=== PATIENT | female | born 1945 | race Caucasian/White ===

== ENCOUNTER 2019-06-11 14:07 | Emergency (ER) | payer OTHER ==
[2019-06-11 14:42] VITALS: BMI 23.2
[2019-06-11] MEDS ORDERED: DOPAMINE 400 MG/D5W - 400,000 MCG/250 ML INFUS.BAG IVPB SCH (14:45)
[2019-06-11 15:04] LABS: BASO % 0.3 % (0-2.0); EOS % 0.9 % (0-4.5); HEMATOCRIT 34.9 % (32.4-45.2); HEMOGLOBIN 11.4 GM/dl (10.7-15.3); LYMPH % 10.6 % (8-40); MCH 30.7 pg (25.7-33.7); MCHC 32.5 g/dl (32.0-36.0); MEAN CELL VOLUME 94.3 fl (80-96); MEAN PLT VOLUME 9.5 fl (7.5-11.1); MONO % 2.5 % (3.8-10.2); NEUT % 85.7 % (42.8-82.8); PLATELET COUNT 279 K/MM3 (134-434); RDW 13.4 % (11.6-15.6); WHITE BLOOD COUNT 9.8 K/mm3 (4.0-10.8)
--- NOTE | 2019-06-11 15:04 | PDOC ---
History of Present Illness - General Chief Complaint: Lightheaded Stated Complaint: DIZZINESS Time Seen by Provider: 06/11/19 14:20 - History of Present Illness Initial Comments: 06/11/19 15:58 73f with pmh of htn and hypothoidism presents to the ED with daughter complaining of weakness and dizziness over the past 2-4 weeks, worse today. As per daughter patient has been progressively weak, very poor appetite and not mopving around the house as much. Only drank coffee today. Denies any chest pain, sob, fever, chills or abdominal pain. No recent travel. Started Amlodipine 1 week ago. Triage vitals: Heart rate of 22, BP 116/69 Past History - Past Medical History Allergies/Adverse Reactions: Allergies Allergy/AdvReac Type Severity Reaction Status Date / Time No Known Allergies Allergy Verified 06/11/19 14:08 Home Medications: Ambulatory Orders Amlodipine Besylate 5 mg PO DAILY 06/11/19 Glipizide 5 mg PO DAILY 06/11/19 Levothyroxine [Synthroid -] 100 mcg PO DAILY 06/11/19 Metformin HCl [Glucophage] 1,000 mg PO BID 06/11/19 Oxybutynin Chloride [Ditropan Xl] 10 mg PO DAILY 06/11/19 Triamterene/Hydrochlorothiazid [Triamterene-Hctz 37.5-25 mg Cp] 1 each PO DAILY 06/11/19 Valsartan 320 mg PO DAILY 06/11/19 COPD: No Diabetes: Yes Disorders: Yes (urinary incontinence) HTN: Yes - Psycho Social/Smoking Cessation Hx Smoking History: Never smoked Have you smoked in the past 12 months: No Information on smoking cessation initiated: No Hx Alcohol Use: No Review of Systems - Review of Systems Able to Perform ROS?: Yes Is the patient limited Macanese proficient: No Constitutional: Yes: See HPI, Weakness HEENTM: No: Symptoms Reported Respiratory: No: Symptoms reported Cardiac (ROS): No: Symptoms Reported ABD/GI: No: Symptoms Reported : No: Symptoms Reported Musculoskeletal: No: Symptoms Reported Integumentary: No: Symptoms Reported Neurological: Yes: See HPI All Other Systems: Reviewed and Negative *Physical Exam - Vital Signs Last Vital Signs Temp Pulse Resp BP Pulse Ox 97.4 F L 54 L 18 138/77 99 06/11/19 16:00 06/11/19 16:00 06/11/19 16:00 06/11/19 16:00 06/11/19 16:00 - Physical Exam General Appearance: Yes: Mild Distress, Thin HEENT: positive: EOMI, MARCELLO, Normal ENT Inspection Respiratory/Chest: positive: Lungs Clear, Normal Breath Sounds. negative: Chest Tender, Respiratory Distress Cardiovascular: positive: S1, S2, Bradycardia Gastrointestinal/Abdominal: positive: Normal Bowel Sounds, Flat, Soft. negative : Tender Extremity: positive: Normal Capillary Refill, Normal Inspection, Normal Range of Motion Integumentary: positive: Dry, Warm, Pale Neurologic: positive: Fully Oriented, Alert ED Treatment Course - LABORATORY CBC & Chemistry Diagram: 06/11/19 14:51 06/11/19 16:26 - ADDITIONAL ORDERS Additional order review: 06/11/19 14:51 RBC 3.70 MCV 94.3 MCHC 32.5 RDW 13.4 MPV 9.5 Neutrophils % 85.7 H Lymphocytes % 10.6 Monocytes % 2.5 L Eosinophils % 0.9 Basophils % 0.3 - Medications Given in the ED: ED Medications Discontinued Medications Generic Name Dose Route Start Last Admin Trade Name Freq PRN Reason Stop Dose Admin Albuterol Sulfate 2 amp 06/11/19 15:36 06/11/19 15:39 Ventolin 0.083% Nebulizer Soln - NEB 06/11/19 15:37 2 amp ONCE ONE Administration Calcium Gluconate 2,000 mg 06/11/19 15:35 06/11/19 15:30 Calcium Gluconate 10% - IVPUSH 06/11/19 15:36 2,000 mg ONCE ONE Administration Dextrose 25 gm 06/11/19 15:36 06/11/19 15:40 D50w (Vial) - IVPUSH 06/11/19 15:37 25 gm NOW ONE Administration Dopamine HCl/Dextrose 400,000 mcg in 250 mls @ 10.461 mls/hr 06/11/19 14:45 06/11/19 14:51 Dopamine 400 Mg/D5w - IVPB 5 mcg/kg/min TITR GM 10.461 mls/hr Administration Protocol 5 MCG/KG/MIN Insulin Human Regular 5 units 06/11/19 15:34 06/11/19 15:47 Novolin R Vial *For Ivpush Or Iv Drip Only* IVPUSH 06/11/19 15:35 5 units ONCE ONE Administration Medical Decision Making - Medical Decision Making 06/12/19 13:42 73F with pmh of HTN, dm2, hypothyroidism coming in with symptomatic bradycardia , hemodynamically stable, dizziness and failure to thrive for the past week. DDX: [place], medication overdose, infection? EKG: junctional rhythm with bigeminy rate 40, no P waves seen. Monitor and pads placed on patient. Deferring using atropine as patient is hemodynamically stable. Patient started on Dopamine, which made her revert to sinus rhythm, HR is now in the 60's, maintaining good blood pressure (increase to systolic 170) however patient is now vomiting coffee colored liquid (actual coffee vs Upper gi bleed?) Will defer giving Zofran att this time as to avoid prolonging QT. Sinus rhythm confirmed with EKG Spoke to [employer] Contact Printer solutions specialist Dr. Lopez who agrees with the plan, advised to transfer patient to CCU capable facility. Starting transfer to [facility]. Accepted by CCU fellow Dr. Monzon. Patient hyponatremic at 116, hyperkalemic at 6.6. Starting anti-hyperk medication with CaGluconate, albuterol, insulin and D50. Will not correct hypernatremia at this time as patient is awake and alert, unknown chronicity. Negative trops. Spoke to Dr. Thurman at [facility] ED who will receive the patient in the ED. Discharge - Discharge Information Problems reviewed: Yes Clinical Impression/Diagnosis: Symptomatic bradycardia, Hyponatremia, Hyperkalemia, Acute kidney failure Condition: Stable Disposition: TRANSFER ACUTE CARE/OTHER HOSP - Follow up/Referral Referrals: Pardeep Quinonez MD [Primary Care Provider] - - Patient Discharge Instructions - Post Discharge Activity - Transfer to Acute Care Facility Receiving Facility Name: [facility] Accepting Physician:: Dr. Monzon
[2019-06-11 15:15] LABS: INR 1.02 (0.82-1.09); PROTHROMBIN TIME (PATIENT) 11.4 SEC (10.2-13.0)
[2019-06-11 15:26] LABS: ALBUMIN 3.3 g/dl (3.4-5.0); BILIRUBIN,TOTAL 0.5 mg/dl (0.2-1); CALCIUM 8.9 mg/dl (8.5-10); CREATININE 1.5 mg/dl (0.55-1.3); MAGNESIUM 1.7 mg/dL (1.8-2.4); TOT PROT 6.4 g/dl (6.4-8.2)
--- NOTE | 2019-06-11 15:32 | PDOC ---
Attending Attestation - Resident Resident Name: SkinnyCarlos - ED Attending Attestation I have performed the following: I have examined & evaluated the patient, The case was reviewed & discussed with the resident, I agree w/resident's findings & plan, Exceptions are as noted - HPI HPI: 06/11/19 15:18 73-year-old female with a history of hypertension, diabetes, hypothyroidism presents the emergency department with 1 month of lightheadedness that has been progressive over the last 3 days. Patient's daughter states that for the last 2 days she has barely gotten out of bed, and has not been eating. Patient also reports nausea. She denies any chest or abdominal pain. Of note, patient noted to be bradycardic to 22 in triage with a blood pressure of 116/69. Patient denies headache, fevers, chills, focal weakness or numbness, shortness of breath, lower extremity edema.Denies recent travel or immobility. Daughter reports that one month ago the patient was started on valsartan for blood pressure control and 1 week ago amlodipine was added by her primary care doctor. 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 - Physicial Exam PE: 06/11/19 15:20 GENERAL: Awake, alert, and fully oriented, in no acute distress. Pale EYES: EOMI, sclera anicteric, conjunctiva clear ENT: Oropharynx clear without exudates. Moist mucosa NECK: Normal ROM, supple, no lymphadenopathy, JVD, or masses LUNGS: Breath sounds equal, clear to auscultation bilaterally. No wheezes, and no crackles HEART: Bradycardia ranging from 20-60, irregular at times, normal S1 and S2, no murmurs, rubs or gallops ABDOMEN: Soft, nontender, normoactive bowel sounds. No guarding, no rebound. No masses EXTREMITIES: Normal range of motion, no edema. No clubbing or cyanosis. No cords, erythema, or tenderness. WWP. NEUROLOGICAL: Normal speech, cranial nerves intact, 5/5 strength in all 4 extremities, normal sensation to light touch in all 4 extremities, gait deferred SKIN: Warm, Dry, normal turgor, no rashes or lesions noted. - Critical Care Time Total Critical Care Time: 60 Critical Care Statement: The care of this patient involved high complexity decision making to prevent further life threatening deterioration of the patient 's condition and/or to evaluate & treat vital organ system(s) failure or risk of failure. - Medical Decision Making 06/11/19 15:22 73-year-old female with a history of hypertension, diabetes, hypothyroidism presents the emergency department with progressive lightheadedness for 1 month, found to have symptomatic but stable bradycardia. Not beta blocked, is newly on valsartan for 1 month and amlodipine for 1 week. Also on a diuretic. Unlikely that these medications are contributing to her bradycardia. Initial EKG appears to be a junctional rhythm with bigeminy, rate 40. No ST elevations. Rhythm strip shortly thereafter with only junctional rhythm without bigeminy. Patient was initiated on dopamine at 5mcg/kg/min with good response in heart rate to the 50s and 60s and blood pressure in the 140s and 150s systolic in both arms. Patient feeling less dizzy on dopamine. Repeat EKG after dopamine now in sinus rhythm with a rate of 60, no ST elevations. Case discussed with Dr. Lopez from cardiology, agrees with dopamine support. Plan will be to send patient to a CCU at this time as she likely needs a pacemaker, and possibly a cath depending on her cardiac enzymes. Patient has 2 IVs, pacer pads are in place. Labs are pending at this time, anticipate transfer to [facility]. Pt has been autoaccepted by CCU fellow Dr. Monzon, awaiting call back to discuss case. Pt and daughter consent for transfer. 06/11/19 15:30 Labs remarkable for hyperkalemia to 6.6. Pt given stat dose of calcium gluconate 2G, albuterol, insulin 5 units, amp of D50 Pt also severely hyponatremic to 116, unknown if acute or chronic. Fluids stopped. Environmental Services Assistant 1.5 Trop negative. Possible adrenal crisis? Crit care transport team has arrived, we have still not spoken with physician at CCU, will call transfer center again. 06/11/19 16:15 Case discussed with ED attending Dr. Thurman by Dr. Babb Pt transported to [facility] ED with crit care team
[2019-06-11 15:33] LABS: POTASSIUM 6.6 mmol/L (3.5-5.1)
[2019-06-11] MEDS ORDERED: CALCIUM CHLORIDE 10% 1 GM/10 ML *VIAL IVPUSH ONE (15:33)
[2019-06-11] MEDS ORDERED: CALCIUM GLUCONATE 10% - 1,000 MG/10 ML VIAL ONE (15:34)
[2019-06-11] MEDS ORDERED: INSULIN REGULAR HUMAN 100 UNITS/ML *VIAL IVPUSH ONE (15:34)
[2019-06-11] MEDS ORDERED: CALCIUM GLUCONATE 10% - 1,000 MG/10 ML VIAL IVPUSH ONE (15:35)
[2019-06-11] MEDS ORDERED: ALBUTEROL SO4 0.083% IH SOL 2.5 MG/3 ML VIAL.NEB. NEB ONE ×2 (15:35→15:36)
[2019-06-11] MEDS ORDERED: DEXTROSE 50%-WATER - 25 GM/50 ML VIAL IVPUSH ONE (15:36)
[2019-06-11 15:57] LABS: VENOUS PH 7.33 (7.31-7.41)
[2019-06-11 15:58] LABS: VENOUS PO2 < 49 mmHg (28-48)
[2019-06-11 16:21] VITALS: BP 138/77; PULSE 54; TEMP 97.4
[2019-06-11 16:54] LABS: ALBUMIN 3.1 g/dl (3.4-5.0); BILIRUBIN,TOTAL 0.6 mg/dl (0.2-1); CALCIUM 9.3 mg/dl (8.5-10); CREATININE 1.4 mg/dl (0.55-1.3); POTASSIUM 4.6 mmol/L (3.5-5.1); TOT PROT 6.1 g/dl (6.4-8.2)
--- NOTE | 2019-06-12 10:18 | EKG ---
Test Reason : Blood Pressure : / mmHG Vent. Rate : 040 BPM Atrial Rate : 040 BPM P-R Int : 000 ms QRS Dur : 068 ms QT Int : 586 ms P-R-T Axes : 000 028 077 degrees QTc Int : 477 ms UNDETERMINED RHYTHM ? JUNCTIONAL RHYTHM NONSPECIFIC ST AND T WAVE ABNORMALITY ABNORMAL ECG NO PREVIOUS ECGS AVAILABLE Confirmed by NEAL MASON, DEMETRIUS ([id number]) on 06/12/2019 10:17:49 AM Referred By: MARK Confirmed By:DEMETRIUS DE JESUS MD
== END 2019-06-11 16:00 | disposition short-term general hospital (02) ==
LOC: FER 14:07
PROC: 3E0F7GC Introduction of Other Therapeutic Substance into Respiratory Tract, Via Natural or Artificial Opening (ICD-10-PCS; principal; 2019-06-11)
PROC: 3E033VG Introduction of Insulin into Peripheral Vein, Percutaneous Approach (ICD-10-PCS; 2019-06-11)
PROC: 3E033GC Introduction of Other Therapeutic Substance into Peripheral Vein, Percutaneous Approach (ICD-10-PCS; 2019-06-11)
DX: R00.1 Bradycardia, unspecified (principal); E87.1 Hypo-osmolality and hyponatremia; E87.5 Hyperkalemia; N17.9 Acute kidney failure, unspecified; I10 Essential (primary) hypertension; E11.9 Type 2 diabetes mellitus without complications; E03.9 Hypothyroidism, unspecified
CPT/HCPCS: 36415; 71045-TC-FY; 80053; 82550; 82803; 83735; 84443; 84484; 85025; 85610; 85730; 93005; 99285-25

== ENCOUNTER 2021-01-28 01:16 | Emergency (ER) | payer OTHER ==
[2021-01-28 01:33] VITALS: BP 171/90; PULSE 76; TEMP 97.7; BMI 27.6
[2021-01-28] MEDS ORDERED: MAGNESIUM CITRATE 300 ML BOTTLE PO ONE (01:37)
[2021-01-28] MEDS ORDERED: MAGNESIUM CITRATE 300 ML BOTTLE ONE (01:41)
[2021-01-28 02:52] LABS: EPI CELLS 9 /uL (0-25.1); HYALINE CASTS 0 /uL (0-3.1); URINE APPEARANCE CLEAR; URINE BACTERIA >9,000 /uL (0-1359); URINE BILIRUBIN NEGATIVE (NEGATIVE); URINE COLOR YELLOW; URINE GLUCOSE (UA) NEGATIVE (NEGATIVE); URINE KETONE NEGATIVE (NEGATIVE); URINE LEUK ESTERASE 1+ (NEGATIVE); URINE NITRITE NEGATIVE (NEGATIVE); URINE PROTEIN NEGATIVE (NEGATIVE); URINE RBC 1 /uL (0-23.9); URINE UROBILINOGEN 0.2 mg/dL (0.2-1.0); URINE WBC 26 /uL (0-25.8)
[2021-01-28] MEDS ORDERED: CEPHALEXIN MONOHYDRATE 500 MG CAPSULE (UD) PO ONE (02:54)
[2021-01-28] MEDS ORDERED: CEPHALEXIN MONOHYDRATE 500 MG CAPSULE (UD) ONE (02:58)
== END 2021-01-28 03:11 | disposition home or self-care (01) ==
LOC: FER 01:16
DX: K59.00 Constipation, unspecified (principal); N30.00 Acute cystitis without hematuria
CPT/HCPCS: 81003; 87086; 87186; 99283-25

== ENCOUNTER 2021-02-27 04:39 | Day surgery (SDC) | payer OTHER ==
[2021-02-25 17:33] VITALS: BMI 26.3
[2021-02-27 12:03] VITALS: PULSE 60; TEMP 97.3
[2021-02-27 12:42] VITALS: BP 132/64
== END 2021-02-27 12:51 | disposition home or self-care (01) ==
LOC: JASU-ENDO 04:39
PROVIDERS: ATTEND Internal Medicine Gastroenterology
PROC: 0DJD8ZZ Inspection of Lower Intestinal Tract, Via Natural or Artificial Opening Endoscopic (ICD-10-PCS; principal; 2021-02-27 11:45)
DX: Z12.11 Encounter for screening for malignant neoplasm of colon (principal); Z86.010 Personal history of colon polyps; K57.30 Diverticulosis of large intestine without perforation or abscess without bleeding; E11.9 Type 2 diabetes mellitus without complications; I10 Essential (primary) hypertension